=== PATIENT | female | born 1990 | race Caucasian/White ===

== ENCOUNTER 2021-05-06 14:05 | Emergency (ER) | payer OTHER ==
[2021-05-06 19:36] LABS: HEMOGLOBIN 10.5 gm/dl (12.3-15.3); RED BLOOD COUNT 3.8 M/UL (4.00-5.10); WHITE BLOOD COUNT 5.7 K/UL (4.5-11.0)
[2021-05-06 19:55] LABS: BUN/CREATININE RATIO 16 (0-10)
[2021-05-06] MEDS ORDERED: [UNRECOGNIZED DRUG - OTHER] PO (21:24)
== END 2021-05-06 21:50 | disposition home or self-care (01) ==
LOC: ER1 14:05
PROVIDERS: Student in an Organized Health Care Education/Training Program
DX: Z32.01 Encounter for pregnancy test, result positive (principal)
CPT/HCPCS: 80048; 84702; 85025; 99284